=== PATIENT | female | born 1980 | race Caucasian/White ===

== ENCOUNTER → 2018-04-21 09:47 | Outpatient (CLI) | payer OTHER, MEDICAID, SELFPAY ==
[2018-04-21 10:17] LABS: Appearance Urine UA CLEAR; Bilirubin Urine UA NEGATIVE (NEGATIVE); Color Urine UA YELLOW; Glucose Urine UA NEGATIVE (Normal); Ketones Urine UA NEGATIVE (NEGATIVE); Leukocyte Esterase Urine UA NEGATIVE (NEGATIVE); Nitrite Urine UA Negative (Negative); Occult Blood Urine UA 1+ (Negative); Protein Urine UA NEGATIVE (Negative); Urobilinogen Urine UA 0.2 E.U./dL (0.2); pH Urine UA 5.5 (4.5-8.0)
[2018-04-21 10:40] LABS: Add Manual Diff / Slide Review NO; Basophils Percent Auto 0.5 % (0-2); Eosinophils Percent Auto 0.7 % (2-4); Hematocrit 44.8 % (36-46); Hemoglobin 15.8 g/dL (12.0-16.0); Lymphocytes Percent Auto 24.4 % (25-40); Mean Corpuscular HGB Conc 35.3 % (30-36); Mean Corpuscular Hemoglobin 32.4 PG (26-34); Mean Corpuscular Volume 91.7 fL (80-100); Neutrophils Absolute Auto 6100 /uL (3000-5900); Neutrophils Percent Auto 68.4 % (50-75); Platelet Count 172 X10^3/uL (150-400); Red Blood Cell Count 4.89 X10^6/uL (4.0-5.2); Red Cell Distribution Width 12.4 % (11.6-14.8); White Blood Cell Count 8.9 X10^3/uL (4.5-11.0)
[2018-04-21 11:45] LABS: Hemoglobin A1C% w Est Avg Glu 5.8 % (4.0-6.0)
[2018-04-21 12:00] LABS: Thyroid Stimulating Hormone 1.44 uIU/mL (0.47-4.68)
[2018-04-21 12:01] LABS: Alanine Aminotransferase 23 IU/L (9-52); Albumin 4.4 g/dL (3.5-5.0); Albumin Globulin Ratio 1.8 (1.0-2.8); Alkaline Phosphatase 50 U/L (38-126); Aspartate Aminotransferase 17 IU/L (14-36); BUN Creatinine Ratio 23.3 (6-22); Blood Urea Nitrogen 14 mg/dL (7-17); Calcium 9.6 mg/dL (8.4-10.2); Carbon Dioxide 23 mmol/L (22-32); Chloride 107 mmol/L (98-107); Cholesterol 204 mg/dL (140-199); Estimated Glomerular Filt Rate > 60.0 mL/min (>60); Globulin 2.5 g/dL (1.7-4.1); Glucose 123 mg/dL (70-100); HDL Cholesterol 47 mg/dL (40-60); HEMOLYSIS < 15 (0-50); LDL Cholesterol Calculated 135 mg/dL (<100); Potassium 4.5 mmol/L (3.4-5.1); Sodium 141 mmol/L (137-145); Total Protein 6.9 g/dL (6.3-8.2); Triglycerides 111 mg/dL (35-150)
== END ==
PROVIDERS: Visit Provider Family Medicine
DX: K58.9 Irritable bowel syndrome, unspecified (principal); K21.9 Gastro-esophageal reflux disease without esophagitis; E11.9 Type 2 diabetes mellitus without complications; F32.9 Major depressive disorder, single episode, unspecified; F41.1 Generalized anxiety disorder; F41.0 Panic disorder [episodic paroxysmal anxiety]
CPT/HCPCS: 36415; 80053; 80061; 81003; 83036; 84443; 85025

== ENCOUNTER → 2018-07-20 16:25 | Outpatient (CLI) | payer OTHER, MEDICAID, SELFPAY ==
[2018-07-20 17:00] LABS: Add Manual Diff / Slide Review NO; Basophils Percent Auto 0.3 % (0-2); Eosinophils Percent Auto 0.5 % (2-4); Hematocrit 40.8 % (36-46); Lymphocytes Percent Auto 21.7 % (25-40); Mean Corpuscular HGB Conc 34.3 % (30-36); Mean Corpuscular Hemoglobin 31.4 PG (26-34); Mean Corpuscular Volume 91.7 fL (80-100); Monocytes Percent Auto 3.9 % (3-14); Neutrophils Absolute Auto 8600 /uL (3000-5900); Neutrophils Percent Auto 73.6 % (50-75); Platelet Count 215 X10^3/uL (150-400); Red Blood Cell Count 4.45 X10^6/uL (4.0-5.2); Red Cell Distribution Width 12.4 % (11.6-14.8); White Blood Cell Count 11.7 X10^3/uL (4.5-11.0)
[2018-07-20 17:43] LABS: Thyroid Stimulating Hormone 1.32 uIU/mL (0.47-4.68)
[2018-07-20 18:55] LABS: Appearance Urine UA CLEAR; Bilirubin Urine UA NEGATIVE (NEGATIVE); Color Urine UA YELLOW; Glucose Urine UA NEGATIVE (Normal); Ketones Urine UA 1+ (NEGATIVE); Leukocyte Esterase Urine UA NEGATIVE (NEGATIVE); Nitrite Urine UA Negative (Negative); Occult Blood Urine UA TRACE-LYSED (Negative); Protein Urine UA NEGATIVE (Negative); Urobilinogen Urine UA 0.2 E.U./dL (0.2); pH Urine UA 5.5 (4.5-8.0)
[2018-07-20 19:17] LABS: Alanine Aminotransferase 24 IU/L (9-52); Albumin 4.3 g/dL (3.5-5.0); Albumin Globulin Ratio 1.7 (1.0-2.8); Alkaline Phosphatase 55 U/L (38-126); Aspartate Aminotransferase 18 IU/L (14-36); BUN Creatinine Ratio 18.3 (6-22); Bilirubin Total 0.7 mg/dL (0.2-1.3); Blood Urea Nitrogen 11 mg/dL (7-17); Calcium 9.5 mg/dL (8.4-10.2); Carbon Dioxide 27 mmol/L (22-32); Chloride 106 mmol/L (98-107); Cholesterol 194 mg/dL (140-199); Estimated Glomerular Filt Rate > 60.0 mL/min (>60); Globulin 2.6 g/dL (1.7-4.1); Glucose 83 mg/dL (70-100); HDL Cholesterol 45 mg/dL (40-60); HEMOLYSIS < 15 (0-50); LDL Cholesterol Calculated 131 mg/dL (<100); Potassium 4.6 mmol/L (3.4-5.1); Sodium 143 mmol/L (137-145); Total Protein 6.9 g/dL (6.3-8.2); Triglycerides 92 mg/dL (35-150)
[2018-07-20 19:27] LABS: Hemoglobin A1C% w Est Avg Glu 6.1 % (4.0-6.0)
== END ==
PROVIDERS: Visit Provider Family Medicine
DX: E11.9 Type 2 diabetes mellitus without complications (principal); K21.9 Gastro-esophageal reflux disease without esophagitis; K58.9 Irritable bowel syndrome, unspecified
CPT/HCPCS: 36415; 80053; 80061; 81003; 83036; 84443; 85025

== ENCOUNTER → 2019-01-01 08:36 | Outpatient (CLI) | payer OTHER, MEDICAID, SELFPAY ==
[2019-01-01 09:08] LABS: Add Manual Diff / Slide Review NO; Basophils Absolute Auto 100 /uL (0-100); Basophils Percent Auto 0.8 % (0-2); Eosinophils Absolute Auto 100 /uL (0-450); Eosinophils Percent Auto 1.5 % (2-4); Hematocrit 42.8 % (36-46); Hemoglobin 14.8 g/dL (12.0-16.0); Lymphocytes Absolute Auto 1800 /uL (1100-4500); Mean Corpuscular HGB Conc 34.7 % (30-36); Mean Corpuscular Hemoglobin 31.5 PG (26-34); Monocytes Absolute Auto 400 /uL (0-900); Monocytes Percent Auto 5.8 % (3-14); Neutrophils Absolute Auto 4200 /uL (1500-7000); Neutrophils Percent Auto 63.9 % (50-75); Platelet Count 196 X10^3/uL (150-400); Red Blood Cell Count 4.71 X10^6/uL (4.0-5.2); Red Cell Distribution Width 12.8 % (11.6-14.8); White Blood Cell Count 6.6 X10^3/uL (4.5-11.0)
[2019-01-01 09:26] LABS: Hemoglobin A1C% w Est Avg Glu 5.8 % (4.0-6.0)
[2019-01-01 09:29] LABS: Alanine Aminotransferase 20 IU/L (9-52); Albumin 3.9 g/dL (3.5-5.0); Albumin Globulin Ratio 1.6 (1.0-2.8); Alkaline Phosphatase 59 U/L (38-126); Aspartate Aminotransferase 17 IU/L (14-36); Bilirubin Total 0.5 mg/dL (0.2-1.3); Blood Urea Nitrogen 12 mg/dL (7-17); Carbon Dioxide 23 mmol/L (22-32); Chloride 109 mmol/L (98-107); Cholesterol 205 mg/dL (140-199); Estimated Glomerular Filt Rate > 60.0 mL/min (>60); Globulin 2.5 g/dL (1.7-4.1); Glucose 136 mg/dL (70-100); HDL Cholesterol 42 mg/dL (40-60); HEMOLYSIS < 15 (0-50); LDL Cholesterol Calculated 143 mg/dL (<100); Potassium 4.3 mmol/L (3.4-5.1); Sodium 138 mmol/L (137-145); Total Protein 6.4 g/dL (6.3-8.2); Triglycerides 100 mg/dL (35-150)
[2019-01-01 09:59] LABS: Thyroid Stimulating Hormone 1.55 uIU/mL (0.47-4.68)
== END ==
PROVIDERS: PCP Family Medicine; Visit Provider Family Medicine
DX: E11.9 Type 2 diabetes mellitus without complications (principal); Z13.220 Encounter for screening for lipoid disorders; Z13.29 Encounter for screening for other suspected endocrine disorder; Z51.81 Encounter for therapeutic drug level monitoring
CPT/HCPCS: 36415; 80053; 80061; 83036; 84443; 85025

== ENCOUNTER → 2019-03-12 10:15 | Outpatient (CLI) | payer OTHER, MEDICAID, SELFPAY ==
[2019-03-12 11:37] LABS: Hemoglobin A1C% w Est Avg Glu 5.7 % (4.0-6.0)
== END ==
PROVIDERS: PCP Family Medicine; Visit Provider Family Medicine
DX: E11.9 Type 2 diabetes mellitus without complications (principal); Z51.81 Encounter for therapeutic drug level monitoring
CPT/HCPCS: 36415; 83036

== ENCOUNTER → 2019-05-30 10:28 | Outpatient (CLI) | payer OTHER, MEDICAID, SELFPAY ==
[2019-05-30 10:57] LABS: Influenza A and B by PCR Rapid Negative (Negative)
== END ==
PROVIDERS: PCP Family Medicine; Visit Provider Physician Assistant
DX: R68.89 Other general symptoms and signs (principal)
CPT/HCPCS: 87400; 87502

== ENCOUNTER → 2019-06-01 13:30 | Outpatient (CLI) | payer OTHER, MEDICAID, SELFPAY ==
--- NOTE | 2019-06-01 13:31 | DI.MG.S_ITS ---
BILATERAL DIGITAL DIAGNOSTIC MAMMOGRAM 3D/2D: 06/01/2019 CLINICAL: Left breast mass. Comparison is made to exams dated: 02/26/2017 mammogram, 01/15/2015 mammogram, and 01/04/2015 mammogram - [facility]. The tissue of both breasts is extremely dense, which lowers the sensitivity of mammography. There is 4 cm x 1.2 cm oval equal density asymmetry in the left breast at 1 o'clock middle depth. This correlates as palpated and with area of clinical concern. This has waxed and waned over the years in size. Patient reports that this does fluctuate in size with her menstrual cycles. There is a biopsy marker in the upper outer left breast posterior to this asymmetry which appears to be in a stable oval mass. No other significant masses, calcifications, or other findings are seen in either breast. IMPRESSION: INCOMPLETE: NEEDS ADDITIONAL IMAGING EVALUATION The 4 cm x 1.2 cm oval equal density asymmetry in the left breast is indeterminate. An ultrasound is recommended. The recommended ultrasound is scheduled to immediately follow this examination. This exam was interpreted at Station ID: [id number]. NOTE: For mammograms, a report in lay terms will be sent to the patient. Approximately 15% of breast malignancies will not be visualized mammographically. In the management of a palpable breast mass, a negative mammogram must not discourage biopsy of a clinically suspicious lesion. Electronically Signed By: Sid Arora M.D. aty/:06/01/2019 14:43:27 ACR BI-RADS Category 0: Incomplete [id number]
--- NOTE | 2019-06-01 13:31 | DI.US.S_ITS ---
ULTRASOUND OF LEFT BREAST AND AXILLA: 06/01/2019 CLINICAL: Palpable left breast lump. Comparison is made to exams dated: 06/01/2019 mammogram - [facility], 01/17/2016 ultrasound, 02/26/2017 mammogram, 07/13/2015 ultrasound, 01/15/2015 mammogram, and 01/15/2015 ultrasound biopsy - [facility]. Color flow and real-time ultrasound of the left breast axilla were performed. Lizama scale images of the real-time examination were reviewed. There is 3.8 cm x 4.6 cm x 1.2 cm wider than tall oval mass with an indistinct margin in the left breast at 1:30 o'clock middle depth 6 cm from the nipple. This oval mass is hypoechoic and heterogeneously echogenic. This abnormality is increased in size and correlates as palpated and with mammography findings. Color flow imaging demonstrates that there is an adjacent vascularity. There also is 1.7 cm x 0.9 cm x 1 cm irregular mass with an angular margin in the left breast at 1:30 o'clock posterior depth 9 cm from the nipple. This irregular mass is hypoechoic. This correlates as palpated and with the site of previous biopsy. There is an associated biopsy clip. Color flow imaging demonstrates that there is no vascularity present. No abnormalities were seen sonographically in the left axilla. IMPRESSION: SUSPICIOUS OF MALIGNANCY The 3.8 cm x 4.6 cm x 1.2 cm wider than tall oval mass in the left breast at 1:30 o'clock middle depth resembles a fibroadenoma and is at a low suspicion for malignancy. An ultrasound guided biopsy is recommended. The 1.7 cm x 0.9 cm x 1 cm irregular mass in the left breast at 1:30 o'clock posterior depth was reported to be benign per patient and is probably benign. A follow-up ultrasound in 6 months is recommended to document stability. Findings and biopsy recommendations were discussed with the patient by Dr. Ferrari during today's visit and the patient agreed to proceed with biopsy. This exam was interpreted at Station ID: [id number]. Electronically Signed By: Sid Arora M.D. aty/:06/01/2019 18:16:00 letter sent: Biopsy Required Ultrasound BI-RADS: 4 Suspicious abnormality
== END ==
PROVIDERS: PCP Family Medicine; Visit Provider Family Medicine
DX: N63.20 Unspecified lump in the left breast, unspecified quadrant (principal)
CPT/HCPCS: 76642; 77066; G0279

== ENCOUNTER → 2019-06-24 12:59 | Outpatient (CLI) | payer OTHER, MEDICAID, SELFPAY ==
--- NOTE | 2019-06-24 | DI.MG.S_ITS ---
UNILATERAL LEFT DIGITAL DIAGNOSTIC MAMMOGRAM POST-NEEDLE BIOPSY: 06/24/2019 CLINICAL: Left breast mass. Comparison is made to exams dated: 06/01/2019 mammogram - [facility], 02/26/2017 mammogram, 01/17/2016 ultrasound - [facility], and 06/01/2019 [place] [facility] [place] - [facility]. The tissue of left breast is extremely dense, which lowers the sensitivity of mammography. There is a new web site project manager clip in the appropriate position in the left breast at 1:30 o'clock middle depth. This marker clip placement is at the biopsy site. This correlates with ultrasound findings. Stable pin marker clip in the appropriate position in the left breast at 2 o'clock posterior depth. IMPRESSION: POST PROCEDURE MAMMOGRAM FOR MARKER PLACEMENT Successful marker clip placement in the left breast at 1:30 o'clock middle depth at the biopsy site. This exam was interpreted at Station ID: [id number]. NOTE: For mammograms, a report in lay terms will be sent to the patient. Approximately 15% of breast malignancies will not be visualized mammographically. In the management of a palpable breast mass, a negative mammogram must not discourage biopsy of a clinically suspicious lesion. Electronically Signed By: Finn June M.D. slc/:06/24/2019 15:17:24 ACR BI-RADS Category Post-procedure mammogram for marker placement
--- NOTE | 2019-06-24 | PATH_ITS ---
[facility] Accession Number: [id number] . 01 Material submitted: . breast - LEFT BREAST . 01 Clinical history: . MASS 1:30 6 CMFN 6 PASSES . 02 Diagnosis: Left Breast, Mass 1:30 o'clock, 6 cm FN, Core Needle Biopsies: Benign intraductal papilloma. Fibrous breast tissue with microcysts, consistent with fibrocystic change. Rare calcifications present in association with benign breast tissue. No evidence of atypical hyperplasia, in situ or invasive carcinoma. V 06/27/2019 1411 Local . 02 Electronically signed: . Dominique Felix MD, Pathologist NPI- [id number] . 01 Gross description: . Received one formalin-filled container labeled with the patient's name and designated left breast mass 1:30, 6 cm FN 6 passes. The specimen is received with a plastic filter in container, sample loose in container and consists of multiple portions of light yellow-jarrett tissue which range in size from less than 0.1 cm to 1.4 x 0.2 x 0.2 cm. The specimen is filtered and entirely submitted in one cassette. Collection date: 06/24/2019. Possible collection time: 14:26. Total fixation time: 12 hours, up to 24. ([id number]) /[facility] 06/25/2019 1630 Local . 02 Pathologist provided ICD-10: N63.20 . 02 CPT . 773529 Performed at: 01 [facility] [address] [id number] MD Toby Hayes MD Phone: [phone] Performed at: [facility] [address] [place] [id number] MD Dominique Felix MD Phone: [phone]
--- NOTE | 2019-06-24 13:02 | DI.US.S_ITS ---
ULTRASOUND GUIDED BIOPSY LEFT BREAST USING VACUUM DEVICE WITH MARKING DEVICE INSERTED AND POST DIGITAL MAMMOGRAPHIC IMAGIN06/24/2019 CLINICAL: Left breast mass. PATIENT CONSENT: Risks (minor bleeding, infection, vasovagal reaction and repeat procedure), benefits and alternatives were explained to the patient and written informed consent was obtained. Correlation is made to exams dated: 06/24/2019 mammogram, 06/01/2019 ultrasound, 06/01/2019 mammogram - [facility], 02/26/2017 mammogram, 01/17/2016 ultrasound, and 07/13/2015 [facility]. An ultrasound guided biopsy using real-time ultrasound was performed for the palpable mass located in the left breast at 2 o'clock middle depth 6 cm from the nipple. The skin was prepped in the usual manner. Local anesthetic was administered to the access site. A skin jose raul was made in the breast. A 13 gauge biopsy needle was placed adjacent to the abnormality under ultrasound guidance. Once the needle was documented to be in the correct location, six specimens were obtained using the Mammotome biopsy system. The patient received additional local anesthetic during the procedure. A Barrel clip was inserted into the biopsy cavity. A sterile dressing was applied to the access site. Post procedure digital mammographic imaging demonstrates the location device at the targeted area. The specimens were sent to the laboratory for pathological analysis. IMPRESSION: ULTRASOUND GUIDED BIOPSY BENIGN Ultrasound guided biopsy of the mass in the left breast at 2 o'clock middle depth 6 cm from the nipple was successful with no apparent post procedure complications. Pathology indicates benign fibrocystic changes (FC) and intraductal papilloma (IP). Pathology results are concordant with imaging findings. A follow-up left ultrasound in 6 months is recommended to demonstrate stability of the adjacent 1.7 cm irregular hypoechoic mass. Results will be communicated to the referring clinician. This exam was interpreted at Station ID: [id number]. Finn Dempsey M.D. slc,krg/:06/28/2019 20:59:23
== END ==
PROVIDERS: PCP Family Medicine; Visit Provider Family Medicine
DX: D24.2 Benign neoplasm of left breast (principal); N60.12 Diffuse cystic mastopathy of left breast
CPT/HCPCS: 19083; 77065

== ENCOUNTER → 2019-08-02 17:24 | Outpatient (CLI) | payer OTHER, MEDICAID, SELFPAY | PROVIDERS: PCP Family Medicine; Visit Provider Nurse Practitioner | DX: R30.0 Dysuria (principal) | CPT/HCPCS: 87086 ==

== ENCOUNTER 2019-08-08 20:00 | Emergency (ER) | payer OTHER, MEDICAID, SELFPAY ==
[2019-08-08 20:11] VITALS: BP 200/88; PULSE 73; RESP 22; TEMP 36.9; O2SAT 97; BMI 27.4
--- NOTE | 2019-08-08 20:26 | DI.CT.S_ITS ---
PROCEDURE: CT KIDNEY URETER BLADDER (KUB) INDICATIONS: hematuria, abd discomfort TECHNIQUE: Noncontrast 5 mm thick sections acquired from the diaphragms to the symphysis. 5 mm thick coronal and sagittal reformats were then performed. For radiation dose reduction, the following was used: automated exposure control, adjustment of mA and/or kV according to patient size. COMPARISON: None. FINDINGS: Image quality: Excellent. Lung bases: Lung bases are clear. Heart size is normal. Urinary system: Both kidneys are normal in size. No kidney stones. No hydronephrosis or perinephric fat stranding. Both ureters appear non-dilated throughout their expected courses. Mild diffusion bladder wall thickening noted which could be due to inflammatory neoplastic processes. No calcified urinary bladder stones. Uterus is absent. Other solid organs: Liver is normal in size. Gallbladder is contracted, but within normal limits. Pancreas is normal in contours. Spleen is normal in size. No adrenal nodules. Peritoneum and bowel: Unenhanced bowel loops demonstrate normal wall thickness and caliber. Few scattered colonic diverticuli without evidence of diverticulitis. No free fluid or air. The appendix is normal. Nodes and vessels: No retroperitoneal or mesenteric adenopathy by size criteria. Aorta and inferior vena cava are normal in caliber. Abdominal wall: No ventral hernias. Pelvis: No free pelvic fluid. No inguinal hernias or adenopathy. Bones: No suspicious bony lesions. No vertebral body compression fractures. Spine degenerative disc disease and facet arthropathy. IMPRESSION: 1. No renal stone or hydronephrosis. 2. Diffuse thickening and mild irregularity of the urinary bladder wall. Findings may be secondary to infectious or neoplastic processes. Dictated by: Paola Mullins MD, PhD on 08/08/2019 at 21:00 Approved by: Paola Mullins MD, PhD on 08/08/2019 at 21:05
--- NOTE | 2019-08-08 20:30 | ED.FEMALEGU ---
HPI - Female Genitourinary General Chief complaint: Urogenital-Female Stated complaint: HEADACHE BLOOD IN URINE DIARRHEA Time Seen by Provider: 08/08/19 20:08 Source: patient Mode of arrival: Ambulatory Limitations: no limitations History of Present Illness HPI Narrative: Patient comes emergency department complaining of dysuria, diarrhea, and headache. She states she 1st had dysuria about a week and half ago, and after few days in the walk-in clinic. Urinalysis at that time was negative, than for blood, but the patient was started. Patient states she has been on antibiotics for the last 6 days and now she has diarrhea. She states that she is feeling generally a little better than she was, but continues to have dysuria. Patient states she feels the discomfort in the base her bladder area. No fevers chills. She states she has developed a headache behind both of her eyes. No nausea or vomiting. No cough or shortness of breath. No chest pain. No dizziness. No other complaints at this time. Related Data Previous Rx's Medication Instructions Recorded dicyclomine 20 mg tablet 20 mg PO DAILY PRN #90 tab 04/21/18 albuterol sulfate 90 mcg/actuation 2 puff INHALATION Q6H PRN #6.7 gram 10/11/18 aerosol inhaler Glucometer #1 ea 11/03/18 Lancets #100 each 11/03/18 test strips #100 each 11/03/18 aripiprazole 10 mg tablet 10 mg PO HS #30 tab 04/26/19 bupropion HCl 150 mg tablet,12 hr 150 mg PO DAILY #30 each 07/05/19 sustained-release pantoprazole 40 mg tablet,delayed 40 mg PO QDAY #30 tab 07/05/19 release cephalexin 500 mg capsule 500 mg PO BID 10 Days #20 cap 08/02/19 Allergies Allergy/AdvReac Type Severity Reaction Status Date / Time No Known Allergies Allergy Uncoded 08/02/19 17:13 Review of Systems Constitutional Constitutional: Denies chills, Denies fatigue, Denies fever(s), Denies frequent falls, Reports headache(s), Denies lethargy and Denies weakness Eyes Eyes: Denies change in vision, Denies eye discharge, Denies irritation and Denies loss of vision ENT Ears, Nose, Mouth, and Throat: Denies change in voice, Denies dizziness, Reports headache(s), Denies neck pain, Denies sore throat and Denies throat swelling Cardiovascular Cardiovascular: Denies chest pain, Denies irregular heart rhythm, Denies lightheadedness, Denies palpitations, Denies dyspnea, Denies dyspnea on exertion and Denies orthopnea Respiratory Respiratory: Denies cough, Denies dyspnea, Denies dyspnea on exertion and Denies wheezing Gastrointestinal Gastrointestinal: Denies abdominal pain, Denies change in bowel habits, Denies diarrhea, Denies nausea and Denies vomiting Genitourinary Genitourinary: Denies hematuria, Reports dysuria, Denies flank pain, Denies urinary incontinence and Denies urinary urgency Musculoskeletal Musculoskeletal: Denies back pain, Denies muscle weakness, Denies neck pain, Denies numbness and Denies tingling Integumentary/Breasts Skin/Breast: Denies pruritus, Denies erythema, Denies rash and Denies wounds Neurologic Neurologic: Denies behavioral changes, Denies confusion, Denies dizziness, Denies frequent falls, Reports headache(s), Denies loss of vision, Denies numbness, Denies tingling and Denies weakness Psychiatric Psychiatric: Denies anxiety, Denies behavioral changes, Denies confusion, Denies depression, Denies homicidal ideation and Denies suicidal ideation Endocrine Endocrine: Denies fatigue, Denies flushing and Denies palpitations Hematologic/Lymphatic Hematologic/Lymphatic: Denies easy bruising Allergic/Immunologic Allergic/Immunologic: Denies urticaria, Denies throat swelling and Denies wheezing Patient History Medical History Abnormal Pap smear of cervix (Resolved) Allergic rhinitis (Chronic) Ankle pain (Resolved) Anxiety (Chronic) Asthma (Chronic) Chickenpox (Resolved) Chronic back pain (Chronic) Depression (Chronic) Fibroids (Resolved) Fibromyalgia (Chronic Unknown) Foot pain (Resolved) Gastroparesis (Chronic) Generalized headaches (Chronic) GERD (gastroesophageal reflux disease) (Chronic) Heavy menstrual period (Chronic) History of recurrent ear infection (Resolved) Human papilloma virus (Chronic) IBS (irritable bowel syndrome) (Chronic Unknown) Migraines (Chronic) Ruptured eardrum (Chronic) Type 2 diabetes mellitus (Chronic Unknown) Surgical History Hx of section (Resolved 2009) Hx of hysterectomy (Resolved ~2012) Hx of tubal ligation (Resolved 2009) Family History Father Diabetes mellitus AAA (abdominal aortic aneurysm) Mother Cancer Grandfather No problems noted. Grandmother Cancer Grandfather Diabetes mellitus Heart disease Grandmother Heart disease tobacco type: cigarettes alcohol intake frequency: holidays/special occasions only Substance Use Type: does not use Exam Initial Vital Signs Initial Vital Signs: Vital Signs Temperature 98.5 F 08/08/19 20:11 Pulse Rate 73 08/08/19 20:11 Respiratory Rate 22 08/08/19 20:11 Blood Pressure 200/88 H 08/08/19 20:11 Pulse Oximetry 97 08/08/19 20:11 Const General: cooperative and well developed Nutritional Appearance: well nourished Orientation: alert, awake, oriented x3 and not confused HENMT Head: normocephalic and atraumatic Ears: external ears normal Nose: external nose normal and No nasal discharge Face and sinus: face symmetric and No dry mucous membranes Mouth: oral mucosae normal and moist mucous membranes Teeth and gingiva: dentition normal Eyes General: appearance normal, both eyes and all related structures Eyelids: eyelids normal Conjunctivae: conjunctivae normal Sclera: sclerae normal Pupils: PERRL EOM: EOM intact bilaterally Neck Neck: normal visual inspection, trachea midline, No lymphadenopathy, No midline deformity and No JVD Lymphatic: No lymphedema Chest Chest: normal inspection of the chest Resp Effort & Inspection: normal respiratory effort, able to speak in complete sentences, no respiratory distress and no use of accessory muscles Auscultation: clear to auscultation bilaterally, no rales, no rhonchi and no wheezes Cardio Rate: regular rate Rhythm: regular rhythm Heart Sounds: no click, no gallops, no murmurs and no rubs Pulses: normal peripheral pulses GI Inspection: non-distended Palpation: soft, no hepatosplenomegaly, No guarding, No pulsatile mass and No tender Auscultation: normal bowel sounds Back/Spine/Pelvis Back: No CVA tenderness Cervical Spine: cervical ROM normal and No pain with cervical ROM Thoracic/Lumbar Spine: thoracic and lumbar spine normal to inspection Skin General: no rashes or lesions noted, No jaundice and No petechiae Neuro General: alert, oriented x3, gait normal and no focal motor deficits Speech: speech normal Extrem General: full ROM, no clubbing, cyanosis or edema, no pedal edema and no calf tenderness Psych Appearance: well kempt Mental Status: mental status grossly normal Attitude: cooperative Thought Content: normal and suicidality Judgment: judgment good Course Course Course Narrative: Patient was treated symptomatically with Toradol and tramadol for her headache. She was worked up with urinalysis and CT KUB. Urinalysis showed trace blood. The CT KUB was unremarkable except for thickening of the bladder wall, which radiologist stated could be due to infection or to possible neoplasm. I discussed the findings with the patient, and advised her that as we have not found any trace of infection, it is important that she follows up in an expedited fashion for further evaluation of the bladder wall findings, particularly since the patient has been feeling tired and has had microscopic hematuria. I have advised her that she should call the OB office 1st and see if they do female Urology; if they do not, I have advised the patient to call [facility] Urology to set up an appointment to follow-up. Orders Ordered: Discontinued Medications Ketorolac Tromethamine (Toradol) 30 mg IM NOW ONE Stop: 08/08/19 20:33 Last Admin: 08/08/19 20:50 Dose: 30 mg Documented by: ROGELIO Tramadol HCl (Ultram) 50 mg PO NOW ONE Stop: 08/08/19 20:33 Last Admin: 08/08/19 20:50 Dose: 50 mg Documented by: ROGELIO Vital Signs Vital signs: Vital Signs - 8 hr 08/08/19 22:36 Pulse Rate 73 Respiratory Rate 18 Blood Pressure 134/70 Pulse Oximetry 98 MDM - Female Genitourinary Medical Records Attestation: I reviewed the patient's medical records. Lab Data Attestation: I reviewed the patient's lab results. Labs: Lab Results 08/08/19 08/08/19 Range/Units 20:10 20:10 Urine Color Yellow Urine Appearance Clear Urine pH 6.0 (4.5-8.0) Ur Specific [place] <=1.005 (1.000-1.035) Urine Protein Negative (Negative) Urine Glucose (UA) Negative (Negative) g/dL Urine Ketones Negative (NEGATIVE) Urine Occult Blood Trace-intact (Negative) Urine Nitrate Negative (Negative) Urine Bilirubin Negative (NEGATIVE) Urine Urobilinogen 0.2 (0.2) E.U./dL Ur Leukocyte Esterase Negative (NEGATIVE) Urine RBC Cancelled 0-1/hpf Urine WBC Cancelled 0-1/hpf Ur Squamous Epith Cells Cancelled 0-1 /hpf Ur Transition Epith Cell Cancelled Ur Renal Epithelial Cell Cancelled Calcium Oxalate Crystal Cancelled Uric Acid Crystals Cancelled Triple Phos Crystals Cancelled Other Crystals Cancelled Amorphous Sediment Cancelled Urine Bacteria Cancelled None seen Hyaline Casts Cancelled Granular Casts Cancelled RBC Casts Cancelled WBC Casts Cancelled Other Casts Cancelled Urine Mucus Cancelled Urine Trichomonas Cancelled Urine Yeast Cancelled Urine Sperm Cancelled Ur Culture Indicated? Cancelled Cult not indicated Micro UA Comment Cancelled Urine Dip Bedside Urine Glucose Negative Bedside Urine Bilirubin - Negative Bedside Urine Ketone - Negative Urine Specific [place] 1.015 Bedside Urine Occult Blood +/- Bedside Urine pH 5.5 Bedside Urine Protein - Negative Bedside Urine Urobilinogen - Negative Bedside Urine Nitrite - Negative Bedside Urine Leukocytes - Negative Esterase Imaging Data CT scan - abdomen: Radiologist's impression: PROCEDURE: CT KIDNEY URETER BLADDER (KUB) INDICATIONS: hematuria, abd discomfort TECHNIQUE: Noncontrast 5 mm thick sections acquired from the diaphragms to the symphysis. 5 mm thick coronal and sagittal reformats were then performed. For radiation dose reduction, the following was used: automated exposure control, adjustment of mA and/or kV according to patient size. COMPARISON: None. FINDINGS: Image quality: Excellent. Lung bases: Lung bases are clear. Heart size is normal. Urinary system: Both kidneys are normal in size. No kidney stones. No hydronephrosis or perinephric fat stranding. Both ureters appear non-dilated throughout their expected courses. Mild diffusion bladder wall thickening noted which could be due to inflammatory neoplastic processes. No calcified urinary bladder stones. Uterus is absent. Other solid organs: Liver is normal in size. Gallbladder is contracted, but within normal limits. Pancreas is normal in contours. Spleen is normal in size. No adrenal nodules. Peritoneum and bowel: Unenhanced bowel loops demonstrate normal wall thickness and caliber. Few scattered colonic diverticuli without evidence of diverticulitis. No free fluid or air. The appendix is normal. Nodes and vessels: No retroperitoneal or mesenteric adenopathy by size criteria. Aorta and inferior vena cava are normal in caliber. Abdominal wall: No ventral hernias. Pelvis: No free pelvic fluid. No inguinal hernias or adenopathy. Bones: No suspicious bony lesions. No vertebral body compression fractures. Spine degenerative disc disease and facet arthropathy. IMPRESSION: 1. No renal stone or hydronephrosis. 2. Diffuse thickening and mild irregularity of the urinary bladder wall. Findings may be secondary to infectious or neoplastic processes. Dictated by: Paola Mullins MD, PhD on 08/08/2019 at 21:00 Approved by: Paola Mullins MD, PhD on 08/08/2019 at 21:05 Discharge Plan Departure Patient Disposition: Home Clinical Impression: Hematuria Qualifiers: Hematuria type: other microscopic Qualified Code(s): R31.29 - Other microscopic hematuria Discharge Date/Time: 08/08/19 22:38 Instructions: DI for Hematuria Activity Restrictions/Additional Instructions: Your urinalysis is negative, except for a small amount of blood. The CT scan does not show any kidney stones, but does show that your bladder wall is thickened and somewhat irregular. This can sometimes be seen with infection, but since you do not have infection the other potential causes must be considered, which is bladder cancer. You may not have cancer the bladder, but it is very important that you follow up with either Urology or OBGYN for further evaluation of this. Prescriptions: No Action dicyclomine 20 mg tablet 20 mg PO DAILY PRN (Reason: IBS) Qty: 90 RF: 0 cephalexin 500 mg capsule 500 mg PO BID 10 Days Qty: 20 RF: 0 (DME) Glucometer Qty: 1 RF: 0 (DME) Lancets Qty: 100 RF: 0 (DME) test strips Qty: 100 RF: 0 albuterol sulfate 90 mcg/actuation HFA aerosol inhaler 2 puff INHALATION Q6H PRN (Reason: cough) Qty: 6.7 RF: 0 aripiprazole [Abilify] 10 mg tablet 10 mg PO HS Qty: 30 RF: 0 bupropion HCl 150 mg tablet sustained-release 12 hr 150 mg PO DAILY Qty: 30 RF: 1 pantoprazole 40 mg tablet,delayed release (DR/EC) 40 mg PO QDAY Qty: 30 RF: 1 Referrals: [facility] Urology [Provider Group] Chikis Bowman MD [Physician] - Shayla Vasquez MD [Physician] - Tika David DO [Primary Care Provider] -
[2019-08-08 20:42] LABS: Appearance Urine UA CLEAR; Bacteria Urine None Seen; Bilirubin Urine UA NEGATIVE (NEGATIVE); Color Urine UA YELLOW; Glucose Urine UA NEGATIVE (Negative); Ketones Urine UA NEGATIVE (NEGATIVE); Leukocyte Esterase Urine UA NEGATIVE (NEGATIVE); Nitrite Urine UA NEGATIVE (Negative); Occult Blood Urine UA TRACE-INTACT (Negative); Protein Urine UA NEGATIVE (Negative); Specific Gravity Urine UA <=1.005 (1.000-1.035); Urobilinogen Urine UA 0.2 E.U./dL (0.2)
[2019-08-08 20:43] LABS: Culture Indicated Urine Cult Not Indicated; RBC Urine 0-1/HPF (0-5/HPF); Squamous Epithelial Cell Urine 0-1 /HPF (0-5/HPF); WBC Urine 0-1/HPF (0-5/HPF)
[2019-08-08] MEDS: KETOROLAC 60 MG/2 ML VIAL 30 MG IM (20:50)
[2019-08-08] MEDS: TRAMADOL 50 MG TABLET PO (20:50)
[2019-08-08 22:00] VITALS: BP 134/70; PULSE 71; RESP 19; O2SAT 100
[2019-08-08 22:36] VITALS: BP 134/70; PULSE 73; RESP 18; O2SAT 98
== END 2019-08-08 22:38 | disposition home or self-care (01) ==
PROVIDERS: Emergency Provider Emergency Medicine; PCP Family Medicine
DX: R31.29 Other microscopic hematuria (principal); R10.9 Unspecified abdominal pain; R51 Headache; R19.7 Diarrhea, unspecified; E11.9 Type 2 diabetes mellitus without complications
CPT/HCPCS: 74176; 81001; 81003; 96372; 99283; 99284; J1885

== ENCOUNTER → 2019-10-13 14:14 | Outpatient (CLI) | payer OTHER, MEDICAID, SELFPAY ==
[2019-10-13 15:28] LABS: Add Manual Diff / Slide Review NO; Basophils Absolute Auto 0 /uL (0-100); Basophils Percent Auto 0.5 % (0-2); Eosinophils Absolute Auto 100 /uL (0-450); Hematocrit 43.2 % (36-46); Lymphocytes Absolute Auto 2400 /uL (1100-4500); Lymphocytes Percent Auto 27.5 % (25-40); Mean Corpuscular HGB Conc 34.8 % (30-36); Mean Corpuscular Hemoglobin 32.3 PG (26-34); Mean Corpuscular Volume 92.7 fL (80-100); Monocytes Absolute Auto 400 /uL (0-900); Monocytes Percent Auto 4.8 % (3-14); Neutrophils Absolute Auto 5900 /uL (1500-7000); Neutrophils Percent Auto 66.2 % (50-75); Platelet Count 205 X10^3/uL (150-400); Red Blood Cell Count 4.66 X10^6/uL (4.0-5.2); Red Cell Distribution Width 12.4 % (11.6-14.8); White Blood Cell Count 8.8 X10^3/uL (4.5-11.0)
[2019-10-13 15:51] LABS: Alanine Aminotransferase 16 IU/L (<35); Albumin 4.5 g/dL (3.5-5.0); Albumin Globulin Ratio 1.8 (1.0-2.8); Alkaline Phosphatase 59 U/L (38-126); Aspartate Aminotransferase 25 IU/L (14-36); BUN Creatinine Ratio 16.7 (6-22); Bilirubin Total 0.7 mg/dL (0.2-1.3); Blood Urea Nitrogen 10 mg/dL (7-17); Calcium 9.2 mg/dL (8.4-10.2); Carbon Dioxide 30 mmol/L (22-32); Chloride 102 mmol/L (98-107); Cholesterol 268 mg/dL (140-199); Estimated Glomerular Filt Rate > 60.0 mL/min (>60); Globulin 2.5 g/dL (1.7-4.1); Glucose 122 mg/dL (70-100); HDL Cholesterol 45 mg/dL (40-60); HEMOLYSIS < 15 (0-50); LDL Cholesterol Calculated 191 mg/dL (<100); Potassium 3.5 mmol/L (3.4-5.1); Sodium 139 mmol/L (137-145); Triglycerides 160 mg/dL (35-150)
[2019-10-13 15:52] LABS: Hemoglobin A1C% w Est Avg Glu 6.3 % (4.0-6.0)
== END ==
PROVIDERS: PCP Family Medicine; Visit Provider Family Medicine
DX: R73.9 Hyperglycemia, unspecified (principal); I10 Essential (primary) hypertension
CPT/HCPCS: 36415; 80053; 80061; 83036; 84443; 85025

== ENCOUNTER → 2019-11-10 17:20 | Outpatient (CLI) | payer OTHER, MEDICAID, SELFPAY ==
--- NOTE | 2019-11-10 17:23 | DI.RAD.S_ITS ---
PROCEDURE: XR CERVICAL SPINE 2V OR 3V INDICATIONS: L shoulder pain and neck pain TECHNIQUE: 3 view(s) of the cervical spine were acquired. COMPARISON: None. FINDINGS: Bones: No fractures or dislocations to the C7 level. The lateral masses of C1 appear intact on the odontoid view. No suspicious bony lesions. Soft tissues: No prevertebral soft tissue swelling. IMPRESSION: No acute osseous abnormality. Dictated by: Finn June M.D. on 11/10/2019 at 20:04 Approved by: Finn June M.D. on 11/10/2019 at 20:04
--- NOTE | 2019-11-10 17:23 | DI.RAD.S_ITS ---
PROCEDURE: XR SHOULDER LT MIN 2V INDICATIONS: L shoulder pain TECHNIQUE: 3 views of the shoulder were acquired. COMPARISON: None. FINDINGS: Bones: No fractures or dislocations. No suspicious bony lesions. Visualized ribs appear intact. Soft tissues: No suspicious soft tissue calcifications. IMPRESSION: No acute osseous abnormality. Dictated by: Finn June M.D. on 11/10/2019 at 20:03 Approved by: Finn June M.D. on 11/10/2019 at 20:04
== END ==
PROVIDERS: PCP Nurse Practitioner; Visit Provider Physician Assistant
DX: M25.512 Pain in left shoulder (principal); M54.2 Cervicalgia
CPT/HCPCS: 72040; 73030

== ENCOUNTER 2019-11-28 21:52 | Emergency (ER) | payer OTHER, MEDICAID, SELFPAY ==
[2019-11-28 22:12] VITALS: BP 170/84; PULSE 74; RESP 16; TEMP 36.8; O2SAT 99; BMI 28.3
[2019-11-28 22:52] LABS: Alanine Aminotransferase 13 IU/L (<35); Albumin Globulin Ratio 1.4 (1.0-2.8); Alkaline Phosphatase 68 U/L (38-126); Aspartate Aminotransferase 19 IU/L (14-36); BUN Creatinine Ratio 13.8 (6-22); Bilirubin Total 0.3 mg/dL (0.2-1.3); Blood Urea Nitrogen 11 mg/dL (7-17); Calcium 9.1 mg/dL (8.4-10.2); Carbon Dioxide 28 mmol/L (22-32); Chloride 105 mmol/L (98-107); Creatine Kinase 75 U/L (30-135); Estimated Glomerular Filt Rate > 60.0 mL/min (>60); Globulin 2.9 g/dL (1.7-4.1); Glucose 136 mg/dL (70-100); HEMOLYSIS < 15 (0-50); Potassium 3.7 mmol/L (3.4-5.1); Sodium 140 mmol/L (137-145); Total Protein 6.9 g/dL (6.3-8.2)
[2019-11-28 22:55] LABS: Add Manual Diff / Slide Review NO; Basophils Absolute Auto 100 /uL (0-100); Basophils Percent Auto 0.8 % (0-2); Eosinophils Absolute Auto 200 /uL (0-450); Eosinophils Percent Auto 2.2 % (2-4); Hematocrit 39.7 % (36-46); Hemoglobin 13.9 g/dL (12.0-16.0); Lymphocytes Absolute Auto 2600 /uL (1100-4500); Lymphocytes Percent Auto 34.2 % (25-40); Mean Corpuscular Hemoglobin 32.1 PG (26-34); Mean Corpuscular Volume 91.8 fL (80-100); Monocytes Absolute Auto 500 /uL (0-900); Monocytes Percent Auto 6.5 % (3-14); Neutrophils Absolute Auto 4300 /uL (1500-7000); Neutrophils Percent Auto 56.3 % (50-75); Platelet Count 200 X10^3/uL (150-400); Red Blood Cell Count 4.33 X10^6/uL (4.0-5.2); Red Cell Distribution Width 12.5 % (11.6-14.8); White Blood Cell Count 7.7 X10^3/uL (4.5-11.0)
[2019-11-28 23:04] LABS: Troponin I < 0.012 ng/mL (0.01-0.034)
[2019-11-29 00:25] VITALS: BP 182/84; PULSE 76; RESP 16; O2SAT 97
[2019-11-29 01:56] VITALS: BP 141/80
--- NOTE | 2019-11-29 02:26 | DI.RAD.S_ITS ---
PROCEDURE: XR CHEST 1V INDICATIONS: hypertension TECHNIQUE: One view of the chest was acquired. COMPARISON: None. FINDINGS: Surgical changes and devices: None. Lungs and pleura: Lungs are clear. No pleural effusions or pneumothorax. Mediastinum: Mediastinal contours appear normal. Heart size is normal. Bones and chest wall: No suspicious bony lesions. Overlying soft tissues appear unremarkable. IMPRESSION: No acute cardiopulmonary disease process. Dictated by: Paola Mullins MD, PhD on 11/29/2019 at 9:12 Approved by: Paola Mullins MD, PhD on 11/29/2019 at 9:13
--- NOTE | 2019-11-29 04:08 | ED_ITS ---
HPI - General Adult General Chief complaint: Hypertension Stated complaint: states high blood pressure, not feeling good Time Seen by Provider: 11/29/19 02:26 Source: patient Mode of arrival: Ambulatory Limitations: no limitations History of Present Illness HPI narrative: This is a 39-year-old female comes to the emergency department complaint of high blood pressure. Patient states they have been trying to get her blood pressure under control her maximum at home was 139/107. She was initially on hydrochlorothiazide without improvement and they have tried to change her to spironolactone and she was just had her dose doubled on Thursday to 50 mg. Patient states that she has been told she has elevated cholesterol she is not on medications yet but is been given 3 months to affected with diet. She states she is also a diet-controlled diabetic. Patient denies other medical history. Should 2003 she does smoke she has been on Chantix for 2 weeks for this, rare alcohol and no illicit. She states she just felt tired a little nauseated but no vomiting. No chest pain or shortness of breath, no abdominal pain. She has had a mild headache all day feel like her hands and feet are slightly swollen. She states she has a history of IBS so her bowel movements can be constipated or diarrhea other all over the place. She typically has urinary frequency but feels like that is actually decreased in the last couple days. No dysuria or urgency. Related Data Previous Rx's Medication Instructions Recorded Glucometer #1 ea 11/03/18 Lancets #100 each 11/03/18 pantoprazole 40 mg tablet,delayed 40 mg PO QDAY #90 tab 09/19/19 release albuterol sulfate 90 mcg/actuation 2 puff INHALATION Q6H PRN #18 gram 10/18/19 aerosol inhaler test strips #100 each 10/18/19 cyclobenzaprine 10 mg tablet 10 mg PO BEDTIME #30 tab 11/10/19 varenicline 0.5 mg (11)-1 mg (42) See Rx Instructions PO PER PKG DIR 11/18/19 tablets in a dose pack #53 each spironolactone 25 mg tablet 50 mg PO DAILY #30 tab 11/25/19 lisinopril 5 mg tablet 5 mg PO DAILY #30 tab 11/28/19 Allergies Allergy/AdvReac Type Severity Reaction Status Date / Time No Known Allergies Allergy Uncoded 11/18/19 08:45 Review of Systems Review of Systems ROS Unobtainable: All systems reviewed & are unremarkable except as noted in HPI and below Patient History Medical History Abnormal Pap smear of cervix (Resolved) Allergic rhinitis (Chronic) Ankle pain (Resolved) Anxiety (Chronic) Asthma (Chronic) Chickenpox (Resolved) Chronic back pain (Chronic) Depression (Chronic) Fibroids (Resolved) Fibromyalgia (Chronic Unknown) Foot pain (Resolved) Gastroparesis (Chronic) Generalized headaches (Chronic) GERD (gastroesophageal reflux disease) (Chronic) Heavy menstrual period (Chronic) History of recurrent ear infection (Resolved) Human papilloma virus (Chronic) Hyperlipidemia (Acute) IBS (irritable bowel syndrome) (Chronic Unknown) Migraines (Chronic) Prediabetes (Acute) Ruptured eardrum (Chronic) Type 2 diabetes mellitus (Chronic Unknown) Surgical History Hx of section (Resolved 2009) Hx of hysterectomy (Resolved ~2012) Hx of tubal ligation (Resolved 2009) Family History Father Diabetes mellitus AAA (abdominal aortic aneurysm) Mother Cancer Grandfather No problems noted. Grandmother Cancer Grandfather Diabetes mellitus Heart disease Grandmother Heart disease Social History Smoking Status: Current every day smoker Tobacco: How many years used: 15 alcohol intake: current Smoking Status: Current every day smoker tobacco type: cigarettes alcohol intake frequency: 0-2 drinks per day Substance Use Type: does not use Exam Narrative Exam Narrative: GENERAL: Alert and oriented x three, well-nourished, well- appearing female in mild distress HEENT: Head normocephalic, atraumatic, EOMI, pupils reactive, face symmetric, moist mucous membranes NECK: Supple, full range of motion CARDIOVASCULAR: Regular rate and rhythm without murmurs, rubs or gallops. RESPIRATORY: Breath sounds equal bilaterally, no wheezes rales or rhonchi. ABDOMEN: Soft, nontender. Normoactive bowel sounds all 4 quadrants. No guarding or rebound, rigidity, no mass : No CVA tenderness EXTREMITIES: Normal range of motion, no clubbing or edema noted. Neurovascularly intact NEUROLOGICAL: Cranial nerves II through XII grossly intact. Moving all extremities SKIN: Warm, dry, no petechiae, no rashes or lesions. Initial Vital Signs Initial Vital Signs: Vital Signs Temperature 98.3 F 11/28/19 22:12 Pulse Rate 74 11/28/19 22:12 Respiratory Rate 16 11/28/19 22:12 Blood Pressure 170/84 H 11/28/19 22:12 Pulse Oximetry 99 11/28/19 22:12 Course Orders Ordered: ED Orders 11/28/19 22:30 CMP [Comprehensive Metabolic Panel] Stat Complete Blood Count AUTO DIFF Stat Troponin & CK Cardiac Panel Stat 11/29/19 02:26 XR chest 1V Stat 11/29/19 04:30 Urine Microscopic Stat Vital Signs Vital signs: Vital Signs - 8 hr 11/29/19 00:25 11/29/19 01:56 11/29/19 04:45 Pulse Rate 76 77 Respiratory Rate 16 18 Blood Pressure 159/93 H Blood Pressure [Left Arm] 182/84 H 141/80 H Pulse Oximetry 97 99 Medical Decision Making Lab Data Lab results reviewed: Yes I reviewed the patient's lab results. Result diagrams: 11/28/19 22:30 11/28/19 22:30 Labs: Lab Results 11/28/19 11/28/19 11/28/19 Range/Units 22:30 22:30 22:30 WBC 7.7 (4.5-11.0) X10^3/uL RBC 4.33 (4.0-5.2) X10^6/uL Hgb 13.9 (12.0-16.0) g/dL Hct 39.7 (36-46) % MCV 91.8 (80-100) fL MCH 32.1 (26-34) PG MCHC 35.0 (30-36) % RDW 12.5 (11.6-14.8) % Plt Count 200 (150-400) X10^3/uL Neut % (Auto) 56.3 (50-75) % Lymph % (Auto) 34.2 (25-40) % [place] % (Auto) 6.5 (3-14) % Eos % (Auto) 2.2 (2-4) % Baso % (Auto) 0.8 (0-2) % Neut # (Auto) 4300 (5339-3988) /uL Lymph # (Auto) 2600 (5406-3688) /uL [place] # (Auto) 500 (0-900) /uL Eos # (Auto) 200 (0-450) /uL Baso # (Auto) 100 (0-100) /uL Sodium 140 (137-145) mmol/L Potassium 3.7 (3.4-5.1) mmol/L Chloride 105 (98-107) mmol/L Carbon Dioxide 28 (22-32) mmol/L BUN 11 (7-17) mg/dL Creatinine 0.80 (0.52-1.04) mg/dL Estimated GFR > 60.0 (>60) mL/min BUN/Creatinine Ratio 13.8 (6-22) Glucose 136 H (70-100) mg/dL Calcium 9.1 (8.4-10.2) mg/dL Total Bilirubin 0.3 (0.2-1.3) mg/dL AST 19 (14-36) IU/L ALT 13 (<35) IU/L Alkaline Phosphatase 68 (38-126) U/L Total Creatine Kinase 75 (30-135) U/L CK-MB (CK-2) TNP CK-MB (CK-2) Rel Index TNP Troponin I < 0.012 (0.01-0.034) ng/mL Total Protein 6.9 (6.3-8.2) g/dL Albumin 4.0 (3.5-5.0) g/dL Globulin 2.9 (1.7-4.1) g/dL Albumin/Globulin Ratio 1.4 (1.0-2.8) Urine RBC (0-5/HPF) Urine WBC (0-5/HPF) Ur Squamous Epith Cells (0-5/HPF) Urine Bacteria (None) Ur Culture Indicated? 11/29/19 Range/Units 04:30 WBC (4.5-11.0) X10^3/uL RBC (4.0-5.2) X10^6/uL Hgb (12.0-16.0) g/dL Hct (36-46) % MCV (80-100) fL MCH (26-34) PG MCHC (30-36) % RDW (11.6-14.8) % Plt Count (150-400) X10^3/uL Neut % (Auto) (50-75) % Lymph % (Auto) (25-40) % [place] % (Auto) (3-14) % Eos % (Auto) (2-4) % Baso % (Auto) (0-2) % Neut # (Auto) (2599-3904) /uL Lymph # (Auto) (6587-1137) /uL [place] # (Auto) (0-900) /uL Eos # (Auto) (0-450) /uL Baso # (Auto) (0-100) /uL Sodium (137-145) mmol/L Potassium (3.4-5.1) mmol/L Chloride (98-107) mmol/L Carbon Dioxide (22-32) mmol/L BUN (7-17) mg/dL Creatinine (0.52-1.04) mg/dL Estimated GFR (>60) mL/min BUN/Creatinine Ratio (6-22) Glucose (70-100) mg/dL Calcium (8.4-10.2) mg/dL Total Bilirubin (0.2-1.3) mg/dL AST (14-36) IU/L ALT (<35) IU/L Alkaline Phosphatase (38-126) U/L Total Creatine Kinase (30-135) U/L CK-MB (CK-2) CK-MB (CK-2) Rel Index Troponin I (0.01-0.034) ng/mL Total Protein (6.3-8.2) g/dL Albumin (3.5-5.0) g/dL Globulin (1.7-4.1) g/dL Albumin/Globulin Ratio (1.0-2.8) Urine RBC None seen (0-5/HPF) Urine WBC None seen (0-5/HPF) Ur Squamous Epith Cells 0-1 /hpf (0-5/HPF) Urine Bacteria None seen (None) Ur Culture Indicated? Cult not indicated Point of Care Testing Test Results Negative Urine Dip Bedside Urine Glucose Negative Bedside Urine Bilirubin - Negative Bedside Urine Ketone - Negative Urine Specific [place] 1.015 Bedside Urine Occult Blood +/- Bedside Urine pH 6.0 Bedside Urine Protein - Negative Bedside Urine Urobilinogen - Negative Bedside Urine Nitrite - Negative Bedside Urine Leukocytes - Negative Esterase Point of care testing: Point of Care Testing Test Results Negative Urine Dip Bedside Urine Glucose Negative Bedside Urine Bilirubin - Negative Bedside Urine Ketone - Negative Urine Specific [place] 1.015 Bedside Urine Occult Blood +/- Bedside Urine pH 6.0 Bedside Urine Protein - Negative Bedside Urine Urobilinogen - Negative Bedside Urine Nitrite - Negative Bedside Urine Leukocytes - Negative Esterase Imaging Data Chest x-ray: Attestation: I personally reviewed and interpreted this imaging study as follows: My Impression: nap, no fracture, no cardiomegaly, normal mediastinum, no free under the diaphragm. No opacification of the lungs. ECG Data Attestation: I personally reviewed and interpreted this ECG as follows: Prior ECG tracings: not available for review Interpretation: Sinus rhythm rate of 70 P are 143 QRS of 91 QTC of 393. No ST elevation or depression appreciated. No prior EKGs available. MDM Narrative Medical decision making narrative: CBC and CMP do not show Major abnormalities other than elevated glucose of 136. Patient's hemoglobin A1c from October was 6.3 showed that she had elevated cholesterol as well as LDL and triglycerides October. Patient's pressure was initially elevated improved in the department. And is moderately elevated here. Chest x-ray, EKG do not show any acute f indings. Urine is neg with neg . Patient is feeling better at this time plan for follow-up with her primary care would not adjust her medication as her blood pressure is not so high that I feel needs short-term adjustment. Discharge Plan Departure Patient Disposition: Home Clinical Impression: Hypertension Discharge Date/Time: 11/29/19 04:45 Instructions: DI for High Blood Pressure Activity Restrictions/Additional Instructions: Follow-up with primary care for recheck in the next week for recheck. Continue home medications as prescribed. Return to the emergency department for fevers greater 100.4 F, severe headaches, vision changes, new chest pain or shortness of breath, persistent vomiting, black or bloody stools, rapidly worsening swelling in her extremities or other new or concerning symptoms. Prescriptions: No Action (DME) Glucometer Qty: 1 RF: 0 (DME) Lancets Qty: 100 RF: 0 cyclobenzaprine 10 mg tablet 10 mg PO BEDTIME Qty: 30 RF: 0 lisinopril 5 mg tablet 5 mg PO DAILY Qty: 30 RF: 2 albuterol sulfate 90 mcg/actuation HFA aerosol inhaler 2 puff INHALATION Q6H PRN (Reason: cough) Qty: 18 RF: 5 (DME) test strips Qty: 100 RF: 0 Chantix Starting Month Box 0.5 mg (11)- 1 mg (42) tablets,dose pack See Rx Instructions PO PER PKG DIR Qty: 53 RF: 0 spironolactone 25 mg tablet 50 mg PO DAILY Qty: 30 RF: 2 pantoprazole 40 mg tablet,delayed release (DR/EC) 40 mg PO QDAY Qty: 90 RF: 1 Referrals: Mayuri Avila ARNP [Primary Care Provider] -
[2019-11-29 04:45] VITALS: BP 159/93; PULSE 77; RESP 18; O2SAT 99
[2019-11-29 04:51] LABS: Bacteria Urine None Seen; RBC Urine None Seen (0-5/HPF); WBC Urine None Seen (0-5/HPF)
[2019-11-29 05:25] LABS: Culture Indicated Urine Cult Not Indicated; Squamous Epithelial Cell Urine 0-1 /HPF (0-5/HPF)
== END 2019-11-29 04:45 | disposition home or self-care (01) ==
PROVIDERS: Emergency Provider Emergency Medicine; PCP Nurse Practitioner
DX: I10 Essential (primary) hypertension (principal); R07.9 Chest pain, unspecified
CPT/HCPCS: 36415; 71045; 80053; 81003; 81015; 81025; 82550; 84484; 85025; 93005; 99284; 99285

== ENCOUNTER → 2019-12-02 08:09 | Outpatient (CLI) | payer OTHER, MEDICAID, SELFPAY ==
[2019-12-02 09:21] LABS: BUN Creatinine Ratio 15.7 (6-22); Blood Urea Nitrogen 11 mg/dL (7-17); Calcium 9.6 mg/dL (8.4-10.2); Carbon Dioxide 27 mmol/L (22-32); Chloride 103 mmol/L (98-107); Estimated Glomerular Filt Rate > 60.0 mL/min (>60); Glucose 168 mg/dL (70-100); HEMOLYSIS < 15 (0-50); Potassium 4.4 mmol/L (3.4-5.1); Sodium 137 mmol/L (137-145)
== END ==
PROVIDERS: PCP Nurse Practitioner; Referring Provider Nurse Practitioner; Visit Provider Nurse Practitioner
DX: I10 Essential (primary) hypertension (principal); M79.89 Other specified soft tissue disorders; R35.0 Frequency of micturition; R51 Headache; R53.83 Other fatigue; R68.89 Other general symptoms and signs; R73.03 Prediabetes
CPT/HCPCS: 36415; 80048; 83735

== ENCOUNTER → 2019-12-22 16:07 | Outpatient (CLI) | payer OTHER, MEDICAID, SELFPAY ==
[2019-12-22 18:28] LABS: BUN Creatinine Ratio 13.8 (6-22); Blood Urea Nitrogen 9 mg/dL (7-17); Calcium 9.8 mg/dL (8.4-10.2); Carbon Dioxide 27 mmol/L (22-32); Chloride 104 mmol/L (98-107); Estimated Glomerular Filt Rate > 60.0 mL/min (>60); Glucose 114 mg/dL (70-100); HEMOLYSIS < 15 (0-50); Potassium 4.4 mmol/L (3.4-5.1); Sodium 139 mmol/L (137-145)
[2019-12-22 18:42] LABS: Free T3, Triiodothyronine Free 3.05 pg/mL (2.77-5.27); Free T4, Direct Thyroxine 1.01 ng/dL (0.78-2.19)
== END ==
PROVIDERS: PCP Nurse Practitioner; Referring Provider Nurse Practitioner; Visit Provider Nurse Practitioner
DX: I10 Essential (primary) hypertension (principal); R00.2 Palpitations; R42 Dizziness and giddiness; Z79.899 Other long term (current) drug therapy
CPT/HCPCS: 36415; 80048; 84439; 84443; 84481

== ENCOUNTER → 2020-02-15 08:38 | Outpatient (CLI) | payer OTHER, MEDICAID, SELFPAY ==
[2020-02-15 11:18] LABS: Follicle Stimulating Hormone 1.63 mIU/mL
== END ==
PROVIDERS: PCP Nurse Practitioner; Referring Provider Obstetrics & Gynecology; Visit Provider Obstetrics & Gynecology
DX: R61 Generalized hyperhidrosis (principal)
CPT/HCPCS: 36415; 83001

== ENCOUNTER → 2020-02-22 09:10 | Outpatient (CLI) | payer OTHER, MEDICAID, SELFPAY ==
--- NOTE | 2020-02-22 10:36 | PM.TREADMILL ---
Cardiac Stress Test Report Referral & Results Date Patient Seen: 02/22/20 Time Patient Seen: 10:00 Requesting provider: Mayuri Avila Indication: Palpitations, right arm parasthesia Rest ECG: NSR Procedure Note: Today following both written and verbal informed consent, the patient was exercised according to a standard [facility] protocol. The patient exercised for a total of 9 minutes 51 seconds achieving a maximum heart rate of 173. Patient's maximum systolic blood pressure was 168. This was an estimated 10.1 METs. Normal hemodynamic response to exercise. CHANNING -10% on active scale. Patient's presenting symptom of right arm paresthesia was not duplicated on exertion. No chest pain or unexpected shortness of breath. Baseline artifact made EKG interpretation difficult during mid exercise, but immediate post exertion EKG was within normal limits with no changes in rhythm or ST deviations. Impression: Low probability for ischemia. [place] treadmill score of 10 correlates with a 97% 5 year survival rate from cardiovascular mortality. Please note: Actual ECG tracings can be found in the PACS system.
== END ==
PROVIDERS: PCP Nurse Practitioner; Referring Provider Nurse Practitioner; Visit Provider Nurse Practitioner
DX: R00.2 Palpitations (principal); R20.2 Paresthesia of skin; R42 Dizziness and giddiness; R73.9 Hyperglycemia, unspecified; R73.03 Prediabetes
CPT/HCPCS: 36415; 82947; 83036; 93016; 93017; 93018

== ENCOUNTER → 2020-02-22 10:35 | Outpatient (CLI) | payer OTHER, MEDICAID, SELFPAY ==
[2020-02-22 12:40] LABS: Hemoglobin A1C% w Est Avg Glu 7.2 % (4.0-6.0)
[2020-02-22 12:56] LABS: Glucose 180 mg/dL (70-100)
== END ==
PROVIDERS: PCP Nurse Practitioner; Referring Provider Nurse Practitioner; Visit Provider Nurse Practitioner
DX: R73.9 Hyperglycemia, unspecified (principal); R73.03 Prediabetes
CPT/HCPCS: 36415; 82947; 83036

== ENCOUNTER → 2020-06-19 10:26 | Outpatient (CLI) | payer OTHER, MEDICAID, SELFPAY ==
[2020-06-19 12:08] LABS: Alanine Aminotransferase 12 IU/L (<35); Albumin 4.3 g/dL (3.5-5.0); Albumin Globulin Ratio 1.7 (1.0-2.8); Alkaline Phosphatase 53 U/L (38-126); Aspartate Aminotransferase 19 IU/L (14-36); BUN Creatinine Ratio 18.8 (6-22); Bilirubin Total 0.5 mg/dL (0.2-1.3); Blood Urea Nitrogen 13 mg/dL (7-17); Calcium 9.4 mg/dL (8.4-10.2); Carbon Dioxide 27 mmol/L (22-32); Chloride 106 mmol/L (98-107); Cholesterol 222 mg/dL (140-199); Estimated Glomerular Filt Rate > 60.0 mL/min (>60); Globulin 2.6 g/dL (1.7-4.1); Glucose 120 mg/dL (70-100); HDL Cholesterol 39 mg/dL (40-60); HEMOLYSIS < 15 (0-50); LDL Cholesterol Calculated 157 mg/dL (<100); Potassium 4.5 mmol/L (3.4-5.1); Sodium 138 mmol/L (137-145); Total Protein 6.9 g/dL (6.3-8.2); Triglycerides 129 mg/dL (35-150)
[2020-06-19 12:24] LABS: Free T3, Triiodothyronine Free 2.54 pg/mL (2.77-5.27); Free T4, Direct Thyroxine 0.98 ng/dL (0.78-2.19)
[2020-06-19 12:37] LABS: Thyroid Stimulating Hormone 0.681 uIU/mL (0.47-4.68)
[2020-06-19 12:52] LABS: Microalbumin Urine Random < 0.6 mg/dL (0-1.6)
[2020-06-19 13:32] LABS: Creatinine Urine Random 65.2 mg/dL
[2020-06-19 17:54] LABS: Hemoglobin A1C% w Est Avg Glu 6.4 % (4.0-6.0)
== END ==
PROVIDERS: PCP Nurse Practitioner; Referring Provider Nurse Practitioner; Visit Provider Nurse Practitioner
DX: E78.5 Hyperlipidemia, unspecified (principal); I10 Essential (primary) hypertension; R73.9 Hyperglycemia, unspecified; E11.9 Type 2 diabetes mellitus without complications
CPT/HCPCS: 36415; 80053; 80061; 82043; 82570; 83036; 84439; 84443; 84481

== ENCOUNTER 2020-08-11 17:49 | Emergency (ER) | payer OTHER, MEDICAID, SELFPAY ==
[2020-08-11 17:59] VITALS: BP 173/107; PULSE 94; RESP 16; TEMP 37.4; O2SAT 97; BMI 25.6
--- NOTE | 2020-08-11 20:13 | ED.GENADULT ---
HPI - General Adult General Chief complaint: Dental/Oral Stated complaint: Poss infection on face/head Time Seen by Provider: 08/11/20 18:25 Source: patient Mode of arrival: Ambulatory Limitations: no limitations History of Present Illness HPI narrative: Patient is a 39-year-old female here for evaluation of approximately 12 hours of right-sided facial pain and swelling. States she woke up this morning started noticing pain in the right side of her face. She states that it hurts when she opens her jaw. She has no dental pain. No sore throat. No fevers. Has somewhat of right-sided earache. No rashes. Has not tried anything for symptoms prior to arrival. Related Data Previous Rx's Medication Instructions Recorded Glucometer #1 ea 11/03/18 Lancets #100 each 11/03/18 albuterol sulfate 90 mcg/actuation 2 puff INHALATION Q6H PRN #18 gram 10/18/19 aerosol inhaler cyclobenzaprine 10 mg tablet 10 mg PO BEDTIME #30 tab 11/10/19 lisinopril 5 mg tablet 5 mg PO DAILY #90 tab 01/30/20 spironolactone 25 mg tablet 50 mg PO DAILY #180 tab 02/20/20 pantoprazole 40 mg tablet,delayed 40 mg PO QDAY #90 tab 03/12/20 release blood glucose test strips #200 each 03/29/20 varenicline 0.5 mg (11)-1 mg (42) See Rx Instructions PO PER PKG DIR 04/27/20 tablets in a dose pack #53 each bupropion HCl 450 mg 24 hr tablet, 450 mg PO QAM #90 tab 06/21/20 extended release dicyclomine 20 mg tablet 20 mg PO DAILY PRN #90 tab 06/21/20 simvastatin 5 mg tablet 5 mg PO BEDTIME #90 tab 06/21/20 metformin 500 mg tablet,extended 2,000 mg PO QPM #120 tab 06/26/20 release 24 hr fluconazole 150 mg tablet 150 mg PO ONCE #1 tab 08/01/20 clindamycin HCl 300 mg PO Q6H 7 Days #28 cap 08/11/20 Allergies Allergy/AdvReac Type Severity Reaction Status Date / Time No Known Allergies Allergy Uncoded 07/19/20 11:56 Review of Systems Constitutional Constitutional: Denies fever(s) and Denies headache(s) Eyes Eyes: Denies change in vision ENT Ears, Nose, Mouth, and Throat: Denies dental pain, Denies ear discharge, Reports otalgia, Denies headache(s), Denies lip swelling, Denies mouth pain, Denies nasal congestion, Reports neck mass, Denies post nasal drip, Denies sore throat, Denies throat swelling and Denies tongue swelling Cardiovascular Cardiovascular: Denies dyspnea Respiratory Respiratory: Denies cough and Denies dyspnea Integumentary/Breasts Skin/Breast: Denies rash Neurologic Neurologic: Denies headache(s) Hematologic/Lymphatic Hematologic/Lymphatic: Denies easy bleeding and Denies easy bruising Allergic/Immunologic Allergic/Immunologic: Denies lip swelling, Denies throat swelling and Denies tongue swelling Patient History Medical History Abdominal cramping (Acute) Abnormal Pap smear of cervix (Resolved) Allergic rhinitis (Chronic) Ankle pain (Resolved) Anxiety (Chronic) Asthma (Chronic) Cervical strain (Inactive) Chickenpox (Resolved) Chronic back pain (Chronic) Depression (Chronic) Depression with anxiety (Acute) Diabetes mellitus (Acute) Dizziness (Inactive) Encounter for tobacco use cessation counseling (Acute) Fibroids (Resolved) Fibromyalgia (Chronic Unknown) Foot pain (Resolved) Gastroparesis (Chronic) Generalized headaches (Chronic) GERD (gastroesophageal reflux disease) (Chronic) Heavy menstrual period (Chronic) History of recurrent ear infection (Resolved) Human papilloma virus (Chronic) Hyperlipidemia (Acute) Hyperlipidemia associated with type 2 diabetes mellitus (Acute) IBS (irritable bowel syndrome) (Chronic Unknown) Intermittent palpitations (Inactive) Left shoulder strain (Inactive) Migraines (Chronic) Neck Pain (Acute) Non-insulin dependent diabetes mellitus (Acute) Numbness and tingling in left arm (Acute) Numbness and tingling of right arm (Acute) Prediabetes (Inactive) Ruptured eardrum (Chronic) Skin lesion of back (Inactive) Tobacco abuse (Acute) Type 2 diabetes mellitus (Chronic Unknown) Surgical History Hx of section (Resolved 2009) Hx of hysterectomy (Resolved ~2012) Hx of tubal ligation (Resolved 2009) Family History Father Diabetes mellitus AAA (abdominal aortic aneurysm) Mother Cancer Grandfather No problems noted. Grandmother Cancer Grandfather Diabetes mellitus Heart disease Grandmother Heart disease Social History Smoking Status: Current every day smoker Tobacco: How many years used: 15 alcohol intake: current Smoking Status: Current every day smoker tobacco type: cigarettes alcohol intake frequency: 0-2 drinks per day Substance Use Type: does not use Exam Initial Vital Signs Initial Vital Signs: Vital Signs Temperature 99.3 F 08/11/20 17:59 Pulse Rate 94 H 08/11/20 17:59 Respiratory Rate 16 08/11/20 17:59 Blood Pressure 173/107 H 08/11/20 17:59 Pulse Oximetry 97 08/11/20 17:59 Const General: cooperative and comfortable Limitations: mental status not altered HENMT Head: normal to inspection and normocephalic Ears: TM's normal bilaterally Nose: external nose normal Face and sinus: no abrasions, no crepitus, no erythema, no edema, no lacerations, no sinus tenderness and other (Swelling right-sided mandibular region) Mouth: oral mucosae normal, lip normal, tongue normal, salivary ducts normal and No drooling Teeth and gingiva: dentition normal Throat: posterior oropharynx normal Eyes Pupils: PERRL EOM: EOM intact bilaterally Neck Lymphatic: No lymphadenopathy Resp Effort & Inspection: normal respiratory effort Skin Lesions: no lesions Rashes: no rashes Neuro General: patient alert, patient awake and patient oriented x3 Cognition: normal cognition Speech: speech normal Extrem General: normal to inspection and capillary refill normal Course Vital Signs Vital signs: Vital Signs - 8 hr 08/11/20 17:59 08/11/20 20:24 Temperature 99.3 F Pulse Rate 94 H 85 Respiratory Rate 16 18 Blood Pressure 173/107 H 128/77 Pulse Oximetry 97 98 Medical Decision Making MDM Narrative Medical decision making narrative: Patient does have swelling in the right-sided mandibular region. Her years unremarkable. Her oral region is unremarkable. I do not feel any specific lymphadenopathy. She is not tender over the parotid gland. There is no purulent material expressed from the parotid gland duct on the right side. There is no skin changes over the area. She has an obvious swelling to the right side without any trauma. There is no specific findings that would point towards the specific infection however she has really only had symptoms for approximately 12 hours. The plan will be is to give her a prescription for antibiotics however she is going to hold on filling this for the next 24-48 hours. If her symptoms improve with just conservative measures to include Tylenol and heat and ice and she is not going to fill the antibiotic. If things change or she develops specific symptoms she is going to take the antibiotic or return to the emergency department. She expressed understanding and agreement with this plan. Discharge Plan Departure Patient Disposition: Home Clinical Impression: Right facial swelling Discharge Date/Time: 08/11/20 20:24 Activity Restrictions/Additional Instructions: There was no definitive infection found on your exam today. I recommend that you hold on filling the prescription of antibiotics you was given this evening for the next 24-48 hours and only start taking it if your symptoms are not improving or are worsening. if you developed any specific symptoms such as ear pain or sore throat I do recommend that you are seen again. Return to the emergency department for any new or worsening symptoms Prescriptions: New clindamycin HCl 300 mg capsule 300 mg PO Q6H 7 Days Qty: 28 RF: 0 No Action (DME) Glucometer Qty: 1 RF: 0 (DME) Lancets Qty: 100 RF: 0 cyclobenzaprine 10 mg tablet 10 mg PO BEDTIME Qty: 30 RF: 0 lisinopril 5 mg tablet 5 mg PO DAILY Qty: 90 RF: 3 spironolactone 25 mg tablet 50 mg PO DAILY Qty: 180 RF: 3 pantoprazole 40 mg tablet,delayed release (DR/EC) 40 mg PO QDAY Qty: 90 RF: 3 metformin [Glucophage XR] 500 mg tablet extended release 24 hr 2,000 mg PO QPM Qty: 120 RF: 3 fluconazole 150 mg tablet 150 mg PO ONCE Qty: 1 RF: 0 albuterol sulfate 90 mcg/actuation HFA aerosol inhaler 2 puff INHALATION Q6H PRN (Reason: cough) Qty: 18 RF: 5 Chantix Starting Month Box 0.5 mg (11)- 1 mg (42) tablets,dose pack See Rx Instructions PO PER PKG DIR Qty: 53 RF: 0 (DME) blood glucose test strips Qty: 200 RF: 3 dicyclomine 20 mg tablet 20 mg PO DAILY PRN (Reason: IBS) Qty: 90 RF: 0 simvastatin 5 mg tablet 5 mg PO BEDTIME Qty: 90 RF: 1 bupropion HCl 450 mg tablet extended release 24 hr 450 mg PO QAM Qty: 90 RF: 1 Referrals: Mayuri Avila ARNP [Primary Care Provider] -
[2020-08-11 20:24] VITALS: BP 128/77; PULSE 85; RESP 18; O2SAT 98
== END 2020-08-11 20:24 | disposition home or self-care (01) ==
PROVIDERS: Emergency Provider Emergency Medicine; PCP Nurse Practitioner
DX: R22.0 Localized swelling, mass and lump, head (principal); H92.01 Otalgia, right ear
CPT/HCPCS: 99281

== ENCOUNTER → 2020-08-20 09:56 | Outpatient (CLI) | payer OTHER, SELFPAY ==
--- NOTE | 2020-08-20 09:58 | DI.RAD.S_ITS ---
PROCEDURE: XR KNEE LT 3V INDICATIONS: fall at work, r/o bony abnormality TECHNIQUE: 3 views of the knee were acquired. COMPARISON: None. FINDINGS: Bones: No fractures or dislocations. No suspicious bony lesions. Soft tissues: No joint effusion. No suspicious soft tissue calcifications. IMPRESSION: No trauma found, no joint effusion or loose body. Dictated by: Braxton Odell M.D. on 08/20/2020 at 10:21 Approved by: Braxton Odell M.D. on 08/20/2020 at 10:22
== END ==
PROVIDERS: PCP Nurse Practitioner; Referring Provider Physician Assistant; Visit Provider Physician Assistant
DX: S89.92XA Unspecified injury of left lower leg, initial encounter (principal); W19.XXXA Unspecified fall, initial encounter
CPT/HCPCS: 73562

== ENCOUNTER → 2020-12-15 09:31 | Outpatient (CLI) | payer OTHER, SELFPAY ==
[2020-12-15 10:34] LABS: Alanine Aminotransferase 14 IU/L (<35); Albumin 4.2 g/dL (3.5-5.0); Albumin Globulin Ratio 1.9 (1.0-2.8); Alkaline Phosphatase 58 U/L (38-126); Aspartate Aminotransferase 18 IU/L (14-36); BUN Creatinine Ratio 27.8 (6-22); Bilirubin Total 0.1 mg/dL (0.2-1.3); Blood Urea Nitrogen 15 mg/dL (7-17); Calcium 9.1 mg/dL (8.4-10.2); Carbon Dioxide 26 mmol/L (22-32); Chloride 107 mmol/L (98-107); Cholesterol 144 mg/dL (140-199); Estimated Glomerular Filt Rate > 60.0 mL/min (>60); Globulin 2.2 g/dL (1.7-4.1); Glucose 116 mg/dL (70-100); HDL Cholesterol 43 mg/dL (40-60); HEMOLYSIS < 15 (0-50); LDL Cholesterol Calculated 86 mg/dL (<100); Potassium 4.4 mmol/L (3.4-5.1); Sodium 139 mmol/L (137-145); Total Protein 6.4 g/dL (6.3-8.2); Triglycerides 76 mg/dL (35-150)
[2020-12-15 10:54] LABS: Creatinine Urine Random 95.2 mg/dL
[2020-12-15 11:01] LABS: Microalbumin Urine Random < 0.6 mg/dL (0-1.6)
== END ==
PROVIDERS: PCP Nurse Practitioner; Referring Provider Nurse Practitioner; Visit Provider Nurse Practitioner
DX: I10 Essential (primary) hypertension (principal); R73.9 Hyperglycemia, unspecified; E78.5 Hyperlipidemia, unspecified
CPT/HCPCS: 36415; 80053; 80061; 82043; 82570; 83036

== ENCOUNTER → 2021-01-03 16:15 | Outpatient (CLI) | payer OTHER, SELFPAY ==
[2021-01-03 17:45] LABS: Influenza A - CEPHEID Flu A NEGATIVE (NEGATIVE); Influenza B - CEPHEID Flu B NEGATIVE (NEGATIVE)
[2021-01-03 18:09] LABS: COVID19 -Nasal RAPID Negative (Negative)
== END ==
PROVIDERS: PCP Nurse Practitioner; Visit Provider Physician Assistant
DX: R09.81 Nasal congestion (principal)
CPT/HCPCS: 87502; 87635

== ENCOUNTER → 2021-02-09 11:24 | Outpatient (CLI) | payer OTHER, SELFPAY ==
[2021-02-09 12:44] LABS: Hemoglobin A1C% w Est Avg Glu 5.7 % (4.0-6.0)
[2021-02-09 13:08] LABS: Alanine Aminotransferase 14 IU/L (<35); Albumin 4.4 g/dL (3.5-5.0); Albumin Globulin Ratio 1.6 (1.0-2.8); Alkaline Phosphatase 57 U/L (38-126); Aspartate Aminotransferase 22 IU/L (14-36); BUN Creatinine Ratio 23.8 (6-22); Bilirubin Total 0.3 mg/dL (0.2-1.3); Blood Urea Nitrogen 15 mg/dL (7-17); Calcium 9.3 mg/dL (8.4-10.2); Carbon Dioxide 22 mmol/L (22-32); Chloride 107 mmol/L (98-107); Estimated Glomerular Filt Rate > 60.0 mL/min (>60); Globulin 2.8 g/dL (1.7-4.1); Glucose 113 mg/dL (70-100); HEMOLYSIS < 15 (0-50); Potassium 4.4 mmol/L (3.4-5.1); Sodium 137 mmol/L (137-145); Total Protein 7.2 g/dL (6.3-8.2)
[2021-02-09 15:46] LABS: Follicle Stimulating Hormone 5.09 mIU/mL
[2021-02-13 02:37] LABS: Estrogen 168 pg/mL (.)
[2021-02-14 09:12] LABS: Percent Free Testosterone 2.67 % (0.50-2.80); Testosterone Free 0.45 ng/dL (0.10-0.85); Testosterone Total 16.9 ng/dL (.)
[2021-02-22 12:35] LABS: % Free Progesterone 2.8 % (.); Free Progesterone 6.5 ng/dL (.); Progesterone, Serum 232 ng/dL (.)
== END ==
PROVIDERS: PCP Nurse Practitioner; Referring Provider Nurse Practitioner; Visit Provider Nurse Practitioner
DX: R68.82 Decreased libido (principal); E11.69 Type 2 diabetes mellitus with other specified complication; E78.5 Hyperlipidemia, unspecified
CPT/HCPCS: 36415; 80053; 82672; 83001; 83036; 84144; 84402; 84403; 84999

== ENCOUNTER → 2021-05-11 10:41 | Outpatient (CLI) | payer OTHER, SELFPAY ==
[2021-05-11 11:20] LABS: Hematocrit 41.1 % (36-46); Hemoglobin 14.2 g/dL (12.0-16.0)
[2021-05-11 11:48] LABS: Alanine Aminotransferase 13 IU/L (<35); Albumin 4.1 g/dL (3.5-5.0); Albumin Globulin Ratio 1.6 (1.0-2.8); Alkaline Phosphatase 50 U/L (38-126); Aspartate Aminotransferase 18 IU/L (14-36); BUN Creatinine Ratio 27.3 (6-22); Bilirubin Total 0.4 mg/dL (0.2-1.3); Blood Urea Nitrogen 18 mg/dL (7-17); Calcium 9.9 mg/dL (8.4-10.2); Carbon Dioxide 21 mmol/L (22-32); Chloride 110 mmol/L (98-107); Cholesterol 212 mg/dL (140-199); Estimated Glomerular Filt Rate > 60.0 mL/min (>60); Globulin 2.5 g/dL (1.7-4.1); Glucose 126 mg/dL (70-100); HDL Cholesterol 50 mg/dL (40-60); HEMOLYSIS 19 (0-50); LDL Cholesterol Calculated 142 mg/dL (<100); Potassium 4.7 mmol/L (3.4-5.1); Sodium 138 mmol/L (137-145); Total Protein 6.6 g/dL (6.3-8.2); Triglycerides 99 mg/dL (35-150)
--- NOTE | 2021-05-11 11:48 | DI.MRI.S_ITS ---
PROCEDURE: MR CERVICAL SPINE WO CON INDICATIONS: worsening pain, headaches, radiating pain in arms and hands TECHNIQUE: Noncontrast sagittal T1 spin echo and T2 fast spin echo, sagittal STIR, foraminal oblique sagittal T2 fast spin echo, and axial gradient echo or T2 fast spin echo through the cervical spine. COMPARISON: None. FINDINGS: Image quality: Excellent. Alignment and Curvature: There is normal bony alignment. Bone Marrow: Marrow demonstrates normal overall signal. Spinal Cord: Visualized spinal cord has normal size and signal. No cerebellar tonsillar herniation. Regional Soft Tissues: No paravertebral masses. Prevertebral soft tissues are normal in thickness. C2-C3: Normal appearance. C3-C4: Normal appearance. C4-C5: Normal appearance. C5-C6: Posterior disc osteophyte complex flattens the ventral cord slightly. Facet and uncovertebral hypertrophy contribute to mild bilateral neural foraminal narrowing. C6-C7: Normal appearance. C7-T1: Normal appearance. IMPRESSION: Mild degenerative changes at C5-C6. Correlate for any C6 radicular symptoms due to mild neural foraminal narrowing. Dictated by: Heber Borjas M.D. on 05/11/2021 at 13:11 Approved by: Heber Borjas M.D. on 05/11/2021 at 13:13
== END ==
PROVIDERS: PCP Nurse Practitioner; Referring Provider Nurse Practitioner; Visit Provider Nurse Practitioner
DX: M47.22 Other spondylosis with radiculopathy, cervical region (principal); R51.9 Headache, unspecified; R20.0 Anesthesia of skin; R20.2 Paresthesia of skin; M54.2 Cervicalgia; E11.69 Type 2 diabetes mellitus with other specified complication; E78.5 Hyperlipidemia, unspecified; Z79.899 Other long term (current) drug therapy; Z87.828 Personal history of other (healed) physical injury and trauma
CPT/HCPCS: 36415; 72141; 80053; 80061; 85014; 85018

== ENCOUNTER → 2021-06-06 10:19 | Outpatient (CLI) | payer OTHER, SELFPAY ==
[2021-06-06 11:44] LABS: COVID19 -Nasal RAPID Negative (Negative)
== END ==
PROVIDERS: PCP Nurse Practitioner; Referring Provider Nurse Practitioner; Visit Provider Nurse Practitioner
DX: Z20.822 Contact with and (suspected) exposure to COVID-19 (principal); J02.9 Acute pharyngitis, unspecified; R05 Cough
CPT/HCPCS: 87635

== ENCOUNTER 2021-06-12 11:55 | Emergency (ER) | payer OTHER, SELFPAY ==
[2021-06-12 12:02] VITALS: BP 146/90; PULSE 85; RESP 18; TEMP 36.9; O2SAT 99
--- NOTE | 2021-06-12 12:06 | DI.RAD.S_ITS ---
PROCEDURE: XR CHEST 2V INDICATIONS: URI x 7 days, dry cough, fever TECHNIQUE: 2 views of the chest were acquired. COMPARISON: [facility], CR, XR CHEST 1V, 11/29/2019, 2:30. FINDINGS: Surgical changes and devices: None. Lungs and pleura: Lungs are clear. No pleural effusions or pneumothorax. Mediastinum: Mediastinal contours are normal. Heart size is normal. Bones and chest wall: No suspicious bony abnormalities. Soft tissues appear unremarkable. IMPRESSION: No acute cardiopulmonary abnormality. Dictated by: Denny Knight M.D. on 06/12/2021 at 12:39 Approved by: Denny Knight M.D. on 06/12/2021 at 12:39
[2021-06-12 13:25] LABS: COVID19 - ADMIT (NP swab/PCR) Negative (Negative)
[2021-06-12 15:25] VITALS: BP 136/72; PULSE 83; O2SAT 97
[2021-06-12 15:30] VITALS: BP 139/66; PULSE 86; O2SAT 97
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
== END 2021-06-12 16:02 | disposition home or self-care (01) ==
PROVIDERS: Emergency Medicine; Emergency Provider Physician Assistant; PCP Nurse Practitioner
DX: J06.9 Acute upper respiratory infection, unspecified (principal); J45.901 Unspecified asthma with (acute) exacerbation; Z20.822 Contact with and (suspected) exposure to COVID-19
CPT/HCPCS: 71046; 87635; 99283; C9803

== ENCOUNTER → 2021-08-23 08:00 | Outpatient (CLI) | payer OTHER, SELFPAY ==
[2021-08-23 09:06] LABS: Hemoglobin 13.7 g/dL (12.0-16.0); Mean Corpuscular HGB Conc 34.2 % (30-36); Mean Corpuscular Hemoglobin 31.8 PG (26-34); Platelet Count 196 X10^3/uL (150-400); Red Cell Distribution Width 12.3 % (11.6-14.8); White Blood Cell Count 6.8 X10^3/uL (4.5-11.0)
[2021-08-23 09:48] LABS: Alanine Aminotransferase 15 IU/L (<35); Albumin 3.9 g/dL (3.5-5.0); Albumin Globulin Ratio 1.8 (1.0-2.8); Alkaline Phosphatase 46 U/L (38-126); Aspartate Aminotransferase 19 IU/L (14-36); BUN Creatinine Ratio 16.7 (6-22); Bilirubin Total 0.4 mg/dL (0.2-1.3); Blood Urea Nitrogen 11 mg/dL (7-17); Carbon Dioxide 25 mmol/L (22-32); Chloride 105 mmol/L (98-107); Cholesterol 145 mg/dL (140-199); Estimated Glomerular Filt Rate > 60.0 mL/min (>60); Globulin 2.2 g/dL (1.7-4.1); Glucose 143 mg/dL (70-100); HDL Cholesterol 41 mg/dL (40-60); HEMOLYSIS < 15 (0-50); LDL Cholesterol Calculated 84 mg/dL (<100); Potassium 4.2 mmol/L (3.4-5.1); Sodium 138 mmol/L (137-145); Total Protein 6.1 g/dL (6.3-8.2); Triglycerides 100 mg/dL (35-150)
[2021-08-23 10:04] LABS: Free T3, Triiodothyronine Free 3.28 pg/mL (2.77-5.27)
[2021-08-23 10:17] LABS: Thyroid Stimulating Hormone 1.68 uIU/mL (0.47-4.68)
[2021-08-23 18:12] LABS: Microalbumin Urine Random 1.4 mg/dL (0-1.6)
[2021-08-23 18:36] LABS: Creatinine Urine Random 186.7 mg/dL; Microalbumi Creatinin Ratio Ur 7.4 ug/mg CR (<30)
== END ==
PROVIDERS: PCP Nurse Practitioner; Referring Provider Nurse Practitioner; Visit Provider Nurse Practitioner
DX: E11.69 Type 2 diabetes mellitus with other specified complication (principal); E78.5 Hyperlipidemia, unspecified; F41.8 Other specified anxiety disorders; I10 Essential (primary) hypertension; Z79.899 Other long term (current) drug therapy; Z00.00 Encounter for general adult medical examination without abnormal findings
CPT/HCPCS: 36415; 80053; 80061; 82043; 82570; 83036; 84439; 84443; 84481; 85027